=== PATIENT | female | born 1965 | race Caucasian/White ===

== ENCOUNTER 2023-06-16 08:30 | Outpatient (REF) | payer OTHER, SELFPAY | END 2023-06-16 08:31 | disposition home or self-care (01) | LOC: HO.SH 08:30 | PROVIDERS: Visit Provider Internal Medicine | DX: Z01.118 Encounter for examination of ears and hearing with other abnormal findings (principal); H93.293 Other abnormal auditory perceptions, bilateral | CPT/HCPCS: 92557; 92567 ==

== ENCOUNTER 2025-03-10 11:40 | Outpatient (AMB) | payer OTHER, SELFPAY ==
--- NOTE | 2025-03-10 11:39 | A.OFFPC_ITS ---
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 Required: No Accompanied by: Self / Same As Patient Allergies Penicillins (PCN) Allergy (Mild, Verified 03/10/25 13:10) Hives Sulfa (Sulfonamide Antibiotics) Allergy (Mild, Verified 03/10/25 13:10) hives Medication List - Last Reconciled 03/10/25 by Jovani Gaitan MD estradiol 0.01%(0.1mg/gram) 0.5 grams vaginal DAILY Tobacco use date assessed: 03/10/25 Dental Screening Dental Screen Date: 03/10/25 Did you have a dental visit in the last 12 months?: Yes Did you have a dental problem in the last 6 months where you did not have access to dental care?: No Was dental information given to patient?: Patient has dentist HPI HPI Comments History of Present Illness Details History of Present Illness - The patient is a 59 year old individua l presenting for evaluation of left leg swelling. - The patient reports that for the past week, there has been swelling in the left foot and leg, and has also noticed swelling in the hands, which prevents t he patient from wearing rings. - The patient notes sock imprints on bot h legs. - Associated symptoms include some sensi tivity in the calf and waking with numbness, which is different from the patient's usual morning stiffness from arthritis. - The patient gets a little winded climb ing three flights of stairs but can walk a mile without issue. - The patient denies any fall, injury, r ecent weight gain, shortness of breath, new medications, recent plane flights, or prolonged car rides prior to symptom onset. - The patient has a history of arthritis and takes Tylenol on occasion. 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 - Exercise: The patient averages about 7 ,500 steps a day and typically does a 10-minute walk workout in the morning, though not in the past week. - Functional Status: The patient reports being able to walk a mile without problems and climb three flights of stairs, though with some shortness of breath. Results PFSH Family History (Updated 03/10/25 @ 11:49 by JOSSELYN Dacosta) Father Diabetes Mother BP (high blood pressure) Arthritis Social History (Updated 03/10/25 @ 11:49 by JOSSELYN Dacosta) Housing: House Alcohol intake: current Alcohol intake frequency: a few times a week Patient Tobacco Use Status: Never used Tobacco service: No Current occupational status: employed Cognitive needs: No Hearing needs: No Vision needs: Yes (rx glasses) Questionnaire PHQ-9 Over the last 2 weeks, how often have you been bothered by any of the following problems? 1. Little interest or pleasure in doing things: not at all 2. Feeling down, depressed, or hopeless: not at all 3. Trouble falling or staying asleep, or sleeping too much: not at all 4. Feeling tired or having little energy: not at all 5. Poor appetite or overeating: not at all 6. Feeling bad about yourself - or that you are a failure or have let yourself or your family down: not at all 7. Trouble concentrating on things, such as reading the newspaper or watching television: not at all 8. Moving or speaking so slowly that other people could have noticed. Or the opposite - being so fidgety or restless that you have been moving around a lot more than usual: not at all 9. Thoughts that you would be better off or of hurting yourself in some way: not at all Total score: 0 Source: Developed by Drs. Faraz Salgado, Ilana Serrato, Orlando Ward and colleagues, with an educational dwight from [employer]. Thrive Questionnaire Date Thrive assessed: 03/10/25 I am a: Patient What is your living situation today?: I have a steady place to live Within the past 12 months, did the food you bought not last and you didn't have the money to get more?: Never true Within the past 12 months, did you worry whether your food would run out before you got money to buy more?: Never true Do you have trouble paying for medicines?: No Do you have trouble getting transportation to medical appointments?: No Do you have trouble paying your heating and electricity bill?: No Do you have trouble taking care of your child, family member or friend?: No Do you have trouble with day-to-day activities such as bathing, preparing meals, shopping, managing finances, etc.?: No Are you currently unemployed and looking for a job?: No Are you interested in more education?: No Please select the resources that you would like help with: None THRIVE Score: 0 AUDIT C Alcohol Use Questionnaire (AUDIT-C) 1. How often do you have a drink containing alcohol?: 2-3 times a week 2. How many drinks containing alcohol do you have on a typical day when you are drinking?: 1 or 2 3. How often do you have six or more drinks on one occasion?: Never Total Score: 3 ZINA-7 AMB Questionnaire ZINA-7 Date ZINA - 7 assessed: 03/10/25 Feeling nervous, anxious, or on edge: 0 = Not at all Not being able to stop or control worryin = Not at all Worrying too much about different things: 0 = Not at all Trouble relaxin = Not at all Being so restless that it is hard to sit still: 0 = Not at all Becoming easily annoyed or irritable: 0 = Not at all Feeling afraid as if something awful might happen: 0 = Not at all Total ZINA-7 score (0-4 normal; 5-9 mild; 10-14 moderate; 15-21 severe): 0 Source: Developed by Drs. Faraz Salgado, Ilana Serrato, Orlando Ward and colleagues, with an educational dwight from [employer]. Review of Systems Narrative Review of Systems - Cardiovascular: Denies shortness of breath. - Respiratory: Reports getting a little winded climbing three flights of stairs. - Musculoskeletal: Reports swelling in the left foot and leg for the past week, with some sensitivity in the calf. - Reports swelling in the hands. - Reports arthritis with usual morning stiffness. - Neurological: Reports waking with numbness. - General: Denies recent weight gain. Physical exam (Primary Care) Vital Signs: Last Vital Signs Temp 97.5 F 03/10/25 11:42 Pulse 94 03/10/25 11:42 Resp 14 03/10/25 11:42 BP 135/72 03/10/25 11:42 Pulse Ox 96 03/10/25 11:42 Oxygen Delivery Method Room Air 03/10/25 11:42 BMI result Body Mass Index 27.1 Tobacco/Smoking Status: Tobacco use Status Tobacco use date assessed 03/10/25 03/10/25 11:49 Patient Tobacco Use Status Never used Tobacco 03/10/25 11:49 PHQ-9: PHQ-9 Score PHQ-9: Total score 0 03/10/25 11:49 Thrive Assessment: Date of Thrive Assessment Date Thrive assessed 03/10/25 03/10/25 11:49 Narrative Physical Exam General: Cooperative and healthy appearing Nutritional Appearance: Well nourished Orientation/consciousness: Patient oriented x3 Limitations: No limitations Head: Normal to inspection General: Appearance normal, both eyes and all related structures Neck: Normal visual inspection Chest: Normal palpation of entire chest wall Respiratory: Normal respiratory effort Neurology: Patient oriented x3 Office Procedures Flu Questionnaire Does the patient have a severe egg allergy?: No Does the patient have severe life threatening allergies?: No Does the patient have a fever or illness today?: No Has the patient ever had Guillain-[place]apee Syndrome?: No Has the patient ever had any past reaction to a flu shot?: No Immunizations Fluarix [id number] (PF) 45 mcg (15 mcg x 3)/0.5 mL IM syringe Performing Provider: Jovani Gaitan MD [facility] Documented (not given) by: JOSSELYN Dacosta on 03/10/25 11:50 Reason Not Given: Patient Refused Coding Level of Care Code Complex visit Add On G2211 Diagnoses Arthralgia M25.50 Assessment & Plan Assessment & Plan (1) Arthralgia: Code(s): M25.50 - Pain in unspecified joint Plan Plan - An order will be placed for basic blood work, including a rheumatology workup and an Erythrocyte Sedimentation Rate (ESR), to evaluate for underlying inflammation. - The patient is advised to take estradiol for the next couple of days to reduce inflammation. - The patient is encouraged to resume exercise, as this may help reduce inflammation. - A follow-up visit is scheduled in two weeks to reassess the patient's condition. - If there is no improvement in symptoms at the follow-up visit, further evaluation will be required. Discussion Notes I discussed with the patient that while the swelling is a concern, the exam fi ndings are not particularly impressive. To investigate the cause, I ordered basic blood work including an ESR, which I described as a check engine light for inflammation. I recommended estradiol for a few days to reduce inflammation and advised resuming exercise. I explained that the current clinical picture does not strongly suggest a deep vein thrombosis (DVT). We will follow up in two weeks, and if the condition has not changed, further investigation will be necessary. Patient Instructions - Please go for blood work as ordered. - Take estradiol for the next couple of days to help reduce the inflammation. - Continue with your exercise routine. - Follow up in the office in two weeks. Orders: Orders Thyroid Stimulating Hormone Today M25.50 - Pain in unspecified joint Influenza [id number] Immunization Today Z23 - Encounter for immunization Erythrocyte Sedimentation Rate Today M25.50 - Pain in unspecified joint C Reactive Protein Today M25.50 - Pain in unspecified joint Basic Metabolic Panel Today M25.50 - Pain in unspecified joint Complete Blood Count no Diff Today M25.50 - Pain in unspecified joint Lyme IgG/IgM w/reflex to WB Today M25.50 - Pain in unspecified joint Liver Panel Today M25.50 - Pain in unspecified joint Lipid Panel Today M25.50 - Pain in unspecified joint
[2025-03-10 11:42] VITALS: BP 135/72; PULSE 94; RESP 14; TEMP 36.4; O2SAT 96; BMI 27.1
--- OUTSIDE RECORDS SUMMARY | 2025-03-10 15:23 | XMS_ITS | Clinical Summary ---
Author Organization [facility] Address [address] [place] [address] Care Team Providers Care Medical Doctor Md Name Role Phone Faraz Marr DO Primary Care Provider Allergies Active Allergy Reactions Criticality Noted Date Comments Azithromycin Rash Low 10/08/2015 Penicillin G 05/31/2017 Salicylic Acid-Sulfur Diarrhea,Rash Low 10/08/2015 Sulfa Antibiotics 05/31/2017 Medications No known medications Active Problems Problem Noted Date Diagnosed Date Hallux rigidus of left foot 05/31/2017 Family History Medical History Relation Name Comments Arthritis Father Diabetes Father Arthritis Mother Hypertension Mother Relation Name Status Comments Father Mother Social History Tobacco Use Types Packs/Day Years Used Date Smoking Tobacco: Never Smokeless Tobacco: Never Alcohol Use Standard Drinks/Week Comments Yes 0 (1 standard drink = 0.6 oz pur e alcohol) Sex and Gender Information Value Date Recorded Sex Assigned at Not on file Gender Identity Not on file Sexual Orientation Not on file Last Filed Vital Signs Vital Sign Reading Time Taken Comments Blood Pressure - - Pulse - - Temperature - - Respiratory Rate - - Oxygen Saturation - - Inhaled Oxygen Concentration - - Weight 77.1 kg (170 lb) 05/31/2017 8:58 AM EST Height 172.7 cm (5' 8 ) 05/31/2017 8:58 AM EST Body Mass Index 25.85 05/31/2017 8:58 AM EST Plan of Treatment Health Maintenance Due Date Last Done Comments Hepatitis C Screening 1964 COVID-19 Vaccine (#1) 1964 Depression Screening 1976 Preventative Health Evaluation 1982 DTap / Tdap / Td (1 - Tdap) 1983 Cervical Cancer Screening (P ap Smear) 1985 Colon Cancer Screening (Colonoscopy) 2009 Breast Cancer Screening (Mammogram) 2014 Shingrix-Zoster Vaccine (1 of 2) 2014 Influenza Vaccine (#1) 2024 RSV Adult > 60+ Yrs or Pregn ant (1 - 1-dose 75+ series) 2039 Hepatitis B Vaccines Aged Out No long er eligible based on patient's age to complete this topic Pneumococcal Vaccine Aged Out No long er eligible based on patient's age to complete this topic RSV Ped < 20 months Aged Out No longe r eligible based on patient's age to complete this topic Care Teams Medical Doctor Md Relationship Specialty Start Date End Date Faraz Marr DO [address] [place] [address] [place] [phone] PCP - General Internal Medicine 05/31/17
--- OUTSIDE RECORDS SUMMARY | 2025-03-10 15:23 | XMS_ITS ---
Author Name [facility] Organization Unknown History of Medication Use Medication Directions Dispensed Refills Start Date End Date Stat us estradiol (ESTRACE) 0.01 % vaginal cream Insert 0.5 g into the vagina daily. 08/20/2024 active Yuvafem 10 MCG vaginal tablet INSERT 1 TABLET INTO THE VAGINA 2 TIMES A WEEK. 08/30/2023 active estradiol (VAGIFEM) 10 MCG vaginal tablet Insert 1 tablet (10 mcg total) into the vagina 2 (two) times a week. 08/29/2022 08/30/2023 active ciprofloxacin (CIPRO) 500 MG tablet TAKE 1 TABLET BY MOUTH EVERY 12 HOURS FOR 7 DAYS 05/26/2022 08/20/2024 active No known medications No known medications active Allergies Allergen Reaction Severity Comment Documented Date Source Statu s SULFA ANTIBIOTICS OTHER (SEE COMMENTS) [facility] PENICILLINS OTHER (SEE COMMENTS) 05/31/2017 [facility] active AZITHROMYCIN RASH/DERMATITIS Mild 10/08/2015 [facility] active SALICYLIC ACID-SULFUR RASH/DERMATITIS 10/08/2015 [facility] active AMOXICILLIN-POT CLAVULANATE OTHER (SEE COMMENTS) [facility] Problems Problem Status Onset Date Problem Type Date of Resoluti on Source Hypertrophy of breast active 2015-10-08 ProblemAct [facility] Urinary frequency active [facility] pain active EncounterDiagnosisAct CCT Encounters Encounter Type Encounter Reason Primary Diagnosis Location Date Ambulatory New Patient New Patient [facility] 11/12/2024 [facility] 08/20/2024 Ambulatory Dense breasts, unspecified Dense breasts, unspecified [facility] 08/02/2024 Ambulatory Unspecified lump in the right breast, unspecified quadrant Unspecified lump in the right breast, unspecified quadrant [facility] 02/09/2024 Ambulatory Mammographic calcification found on diagnostic imaging of breast Mammographic calcification found on diagnostic imaging of breast [facility] 02/09/2024 Ambulatory [facility] 01/05/2024 Ambulatory Other low back pain Other low back pain [facility] 12/28/2023 Ambulatory Other low back pain Other low back pain [facility] 12/22/2023 Ambulatory [facility] 2023 Ambulatory Pelvic and perineal pain Pelvic and perineal pain [facility] 2023 Ambulatory Postmenopausal atrophic vaginitis Postmenopausal atrophic vaginitis [facility] 05/12/2023 Ambulatory Encounter for gynecological examination (general) (routine) without abnormal findings [facility] 08/29/2022 Ambulatory Encounter for ot her preprocedural examination [facility] 06/20/2022 Ambulatory Hypertrophy of breast [facility] 06/10/2022 Ambulatory Hypertrophy of [facility] 05/03/2022 Ambulatory [facility] 04/20/2022 Ambulatory Hypertrophy of breast [facility] 04/14/2022 Ambulatory [facility] 04/05/2022 [facility]ulatory [facility] 03[facility] 03[facility]11/2022 Ambulatory Hypertrophy of [facility] 02/28/2022 [place] [facility] 02/21/2022 Ambulatory [place] [facility] 02/14/2022 Ambulatory [place] [facility] 02/09/2022 Ambulatory Hypert[facility] 02/02/2022 Ambulatory Hypertrophy of [facility] 01/24/2022 Ambulatory Hypertrophy of [facility] 01/14/2022 Care Team Organization Name Specialty Phone Email Start Date End Da te [facility] 08/03/2024 025 [facility] 03/11/2022 025 [place] 01/14/2022 022
--- OUTSIDE RECORDS SUMMARY | 2025-03-10 15:23 | XMS_ITS | Encounter Summary ---
Author Organization [facility] Address [address] [place] [id number] Care Team Providers Care Medical Claims Analyst Name Role Phone Faraz Marr DO Primary Care Provider [phone] Arnulfo Solano MD Unavailable [phone] Encounter Details Date Type Department Care Team (Late st Contact Info) Description 01/05/2018 Scanned Document [facility] Plastic & Reconstructive Surgery [address] [place] [address] Ezra Noyola MD [address] [place] [address] Social History Tobacco Use Types Packs/Day Years Used Date Smoking Tobacco: Never Alcohol Use Standard Drinks/Week Comments Yes 4 (1 standard drink = 0.6 oz pur e alcohol) Comments Unknown Sex and Gender Information Value Date Recorded Sex Assigned at Female 11/11/2024 4:21 PM EDT Legal Sex Female 11:38 AM EDT Gender Identity Not on file Sexual Orientation Not on file documented as of this encounter Plan of Treatment Not on file documented as of this encounter Visit Diagnoses Not on filedocumented in this encounter Care Teams Medical Claims Analyst Relationship Specialty Start Date End Date Faraz Marr DO [address] [place] [address] [address] [place] [address] PCP - General Internal Medicine 11/01/21 Arnulfo Solano MD [address] [place] [id number] Obstetrics and Gynecology 08/29/22 documented as of this encounter
--- OUTSIDE RECORDS SUMMARY | 2025-03-10 15:23 | XMS_ITS | Clinical Summary ---
Author Organization [facility] Address [address] [facility] [place] [address] Phone Care Team Providers Care Litigation Specialist Name Role Phone Faraz Marr DO Primary Care Provider [phone] Allergies Active Allergy Reactions Criticality Noted Date Comments Amoxicillin 02/13/2024 Azithromycin Diarrhea,Nausea And Vomiting,Rash Low 10/08/2015 Penicillins Other 05/31/2017 Sulfa (Sulfonamide Antibiotics) Other 01/14/2022 Sulfadiazine 02/13/2024 Medications estradioL (Yuvafem) 10 mcg tablet vaginal tablet Insert 1 tablet (10 mcg total) into the vagina 2 (two) times a week. Active Active Problems Problem Noted Date Diagnosed Date Palpitations 02/13/2024 Assessment & Plan (02/13/2024 9:44 AM EST): See above. The patient has sinus rhythm and a tendency toward tachycardia. I suspect that she has sinus tachycardia during daytime hours. I have reviewed the different mechanisms associated with rapid heart rates and indicated that electrocardiographic diagnoses during rapid palpitations may be helpful if she has ongoing symptoms despite improved hydration and reduction of alcohol intake. 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 For the past year or so she has noted intermittent episodes during which her heart appears to be racing. These have generally occurred unpredictably and without clear-cut association with emotional stress. They dissipate after a few minutes and have responded favorably to relaxation techniques. There is no associated chest pain, breathlessness or presyncope. The patient has been able to measure her heart rate with her Apple Watch but it is an older version which does not permit rhythm tracings. The patient does not have any evidence of structural heart disease. She specifically does not appear to have a murmur to suggest mitral valve prolapse. Her electrocardiogram is likewise normal. I suspect that the patient tends to run a bit faster than average in terms of her heart rate but this does not appear pathologic. I suspect that she has increased adrenergic stimulation of the heart which may be due to relative dehydration and possibly aggravated by ingestion of caffeine and alcohol. I suggested that the patient work more aggressively on hydration and that she cut back on her alcohol intake. We did review relaxation techniques when her heartbeat is running fast in association with palpitation. I demonstrated to the patient how to take her pulse and indicated that if she has paroxysms where her heartbeat suddenly exceeds 150 beats a minute and then suddenly stops that rhythm determination would be helpful. Toward this end she could utilize a Liztic bora or potentially upgrade her Apple Watch. I do not feel that further cardiac testing such as echocardiography and Holter monitoring is likely to be useful at this time. However I did indicate that I would be happy to hear from her in the future if she has ongoing concerns regarding her heart rhythm. Orders: ECG 12 lead Pulse oximetry, spot Immunizations Immunization Administration Dates Next Due Moderna SARS-CoV-2 COVID-19, mRNA, LNP-S, preservative free 02/11/2022 Surgical History Surgery Date Site/Laterality Comments BREAST LUMPECTOMY BENIGN Medical History Medical History Date Comments GERD (gastroesophageal reflux disease) Bunion of left foot Low back pain Social History Tobacco Use Types Packs/Day Years Used Date Smoking Tobacco: Never Smokeless Tobacco: Never Tobacco Cessation:Counseling Given: Not Answered Alcohol Use Standard Drinks/Week Comments Yes 10 (1 standard drink = 0.6 oz pu re alcohol) Comments Unknown Sex and Gender Information Value Date Recorded Sex Assigned at Not on file Legal Sex Female 2:01 PM EST Gender Identity Not on file Sexual Orientation Not on file Obstetrics History Last Filed Vital Signs Vital Sign Reading Time Taken Comments Blood Pressure 128/82 02/13/2024 8:29 AM EST Pulse 90 02/13/2024 8:29 AM EST Temperature - - Respiratory Rate - - Oxygen Saturation 98% 02/13/2024 8:29 AM EST Inhaled Oxygen Concentration - - Weight 85.4 kg (188 lb 4.8 oz) 02/13/2024 8:29 A M EST Height 172.7 cm (5' 8 ) 02/13/2024 8:29 AM EST Body Mass Index 28.63 02/13/2024 8:29 AM EST Plan of Treatment Health Maintenance Due Date Last Done Comments Colorectal Cancer Screening: Colonoscopy 1964 DTaP,Tdap,and Td Vaccines (1 - Tdap) 1983 Cervical Cancer Screening: P ap Smear 1985 Pneumococcal Vaccine: 50+ Ye ars (1 of 1 - PCV) 2014 Zoster Vaccines (1 of 2) 2014 HIV Screening 01/06/2024 Hepatitis C Screening 01/06/2024 Social Influencers of Health Screening 01/06/2024 Depression Screening 04/10/2024 COVID-19 Vaccine (2 - 2024-2 6 season) 2024 02/11/2022 Influenza Vaccine (#1) 2024 Breast Cancer Screening 02/08/2026 02/09/2024 RSV Immunization Adult Patie nts (1 - 1-dose 75+ series) 2039 HIB Vaccines Aged Out No longer eligi ble based on patient's age to complete this topic HPV Vaccines Aged Out No longer eligi ble based on patient's age to complete this topic Hepatitis A Vaccines Aged Out No long er eligible based on patient's age to complete this topic Hepatitis B Vaccines Aged Out No long er eligible based on patient's age to complete this topic IPV Vaccines Aged Out No longer eligi ble based on patient's age to complete this topic MMR Vaccines Aged Out No longer eligi ble based on patient's age to complete this topic Meningococcal ACWY Vaccine Aged Out N o longer eligible based on patient's age to complete this topic Meningococcal B Vaccine Aged Out No l onger eligible based on patient's age to complete this topic RSV Immunization Patients Un drew 20 months Aged Out No longer eligible b ased on patient's age to complete this topic Varicella Vaccines Aged Out No longer eligible based on patient's age to complete this topic Insurance [employer] Care Teams Litigation Specialist Relationship Specialty Start Date End Date Faraz Marr DO [address] [place] [phone] PCP - General Internal Medicine 05/31/17
--- OUTSIDE RECORDS SUMMARY | 2025-03-10 15:23 | XMS_ITS | Clinical Summary ---
Author Organization [facility] Address [address] [place] [address] Care Team Providers Care Sld Educational Aide Name Role Phone TejinderLewis linares Akosua DIXON Primary Care Provider + [phone] Samuel Romero MD Unavailable [phone] Allergies Active Allergy Reactions Criticality Noted Date Comments Amoxicillin-Pot Clavulanate Other (See Comments) 01/14/2022 Azithromycin Rash/Dermatitis,Diar maksim, GI Intolerance/Nausea/Vomiti ng Low 10/08/2015 Penicillins Other (See Comments) 05/31/2017 Salicylic Acid-Sulfur Diarrhea,Rash/Dermatitis Low 10/08/2015 Sulfa Antibiotics Other (See Comments) 01/15/20 Salicylic Acid-Sulfur Diarrhea,Rash/Dermatitis Low 10/08/2015 Medications estradiol (ESTRACE) 0.01 % vaginal creamIndications :Vaginal atrophy Insert 0.5 g into the vagina daily. 42.5 g 3 08/20/2024 Active Active Problems Problem Noted Date Diagnosed Date Hypertrophy of breast 10/08/2015 Family History Medical History Relation Name Comments Diabetes Father Breast cancer Maternal Grandmother Hypertension Mother Cancer Paternal Grandfather Relation Name Status Comments Father Maternal Grandmother Mother Paternal Grandfather Social History Tobacco Use Types Packs/Day Years Used Date Smoking Tobacco: Never Smokeless Tobacco: Never Tobacco Cessation:Counseling Given: Not Answered Alcohol Use Standard Drinks/Week Comments Not Currently 0 (1 standard drink = 0.6 oz pur e alcohol) stopped 1 month and half ago AUDIT-C Answer Date Recorded Q1: How often do you have a drink containing alcohol? Never 06/02/2022 Q2: How many drinks containi ng alcohol do you have on a typical day when you are drinking? Patient does not drink 3 Q3: How often do you have si x or more drinks on one occasion? Never 06/02/2022 Comments No Sex and Gender Information Value Date Recorded Sex Assigned at Female 11/11/2024 4:21 PM EDT Legal Sex Female 11:38 AM EDT Gender Identity Not on file Sexual Orientation Not on file Last Filed Vital Signs Vital Sign Reading Time Taken Comments Blood Pressure 122/68 11/12/2024 8:46 AM EDT Pulse 99 06/20/2022 1:26 PM EDT Temperature 36.7 C (98.1 F) 06/20/2022 1:26 PM EDT Respiratory Rate 16 06/20/2022 1:26 PM EDT Oxygen Saturation 96% 06/20/2022 1:26 PM EDT Inhaled Oxygen Concentration - - Weight 80 kg (176 lb 6.4 oz) 08/20/2024 2:50 PM EDT Height 171.5 cm (5' 7.5 ) 08/20/2024 2:50 PM EDT Body Mass Index 27.22 08/20/2024 2:50 PM EDT Plan of Treatment Health Maintenance Due Date Last Done Comments Hepatitis C Virus Screening 1964 HIV Screening 1977 DTaP/Tdap/Td Vaccines (1 - Tdap) 1983 Colonoscopy 2009 Pneumococcal Vaccines 50+ (1 of 1 - PCV) 2014 Zoster (Shingles) Vaccine (1 of 2) 2014 Influenza Vaccine 11/08/2024 COVID-19 Vaccine (2 - season) 2024 02/11/2022 Mammogram 12/24/2025 12/25/2023, 05/11, 05/19/2022, Additional history exists Pap Smear (Ages 21-65) 08/21/2027 08/20/2024 RSV Vaccine 50 years and older and Patients (1 - 1-dose 75+ series) 2039 Hepatitis B Vaccines Aged Out No long er eligible based on patient's age to complete this topic Procedures Procedure Name Priority Date/Time Associated Diagnosis Comments THINPREP PAP(PROPOSAL WRITER) HPV SCR RFX HPV 16,18/45 Routine 08/20/2024 3:19 PM EDT Encounter for gynecological examination without abnormal finding MG SCREENING DIGITAL BREAST YASMANY- BILATERAL Routine 12/25/2023 4:27 PM EDT from Last 3 Months or Most Recently Relevant to Health Maintenance Results * (ABNORMAL) ThinPrep Pap(Insurance Sales Assistant) HPV Scr Rfx HPV 16,18/45 (08/20/2024 3:19 PM EDT) 08/20/2024 3:19 PM EDT Narrative [facility] - 08/27/2024 2:46 PM EDT To view the final report click the scan hyperlink below. us Samuel Romero MD LAB AMB PATH/CYTO ORDERABLES Final Result [facility] [address] [place] [address], [place] * MG SCREENING DIGITAL BREAST YASMANY- BILATERAL (12/25/2023 4:27 PM EDT) Anatomical Region Laterality Modality Other 12/25/2023 4:00 PM EDT 12/25/2023 4:00 PM EDT Impressions 01/16/2024 2:49 PM EDT Right 9:00 oval mass with associated calcifications is indeterminate. Additional imaging with spot magnification views and targeted right ultrasound is recommended. OVERALL ASSESSMENT: BI-RADS 0: Incomplete: Need Additional Imaging Evaluation. RECOMMENDATION: Right diagnostic mammography and ultrasound. The patient will receive a lay summary of the results of this breast imaging exam. Lay summaries for mammography examinations will also identify the patients personal breast tissue composition as required by state law. Electronically signed by: Nellie Betancur MD 01/16/2024 02:49 PM EDT Thank you for referring your patient to us, Nellie Betancur MD [phone] (Electronically Signed - 01/16/2024 14:49) Copy: SAMUEL ROMERO MD [facility] [employer] [address] [phone] Narrative 01/16/2024 2:49 PM EDT EXAMINATION: MM SCREENING WITH TOMOSYNTHESIS, BILATERAL CLINICAL INFORMATION: Routine annual screening mammography. History of right benign biopsy in 2022 and left benign biopsy in 2006. Family history of breast cancer in patients sister at age 67 and maternal grandmother at age 56. COMPARISON: Prior mammograms dating back to 12/13/2018. TECHNIQUE: Examination was performed using full breast technique. Standard CC and MLO views of the bilateral breasts were obtained. Tomosynthesis views of the bilateral breasts were obtained at 1 mm increments. Computer-aided detection was utilized by the radiologist in the interpretation of this exam. FINDINGS: The breasts are heterogeneously dense, which may obscure small masses. (ACR BI- RADS breast composition Category c)*. In the right breast at 9:00, middle depth, there is a 0.4 cm oval mass with associated calcifications. There are stable biopsy clips in both breasts. No significant masses, calcifications, or other findings are seen in the left breast. Procedure Note Nellie Betancur MD - 01/16/2024 EXAMINATION: MM SCREENING WITH TOMOSYNTHESIS, BILATERAL CLINICAL INFORMATION: Routine annual screening mammography. History of right benign biopsy [id number] and left benign biopsy in 2006. Family history of breast cancer inpatients sister at age 67 and maternal grandmother at age 56. COMPARISON: Prior mammograms dating back to 12/13/2018. TECHNIQUE: Examination was performed using full breast technique. Standard CC and MLOviews of the bilateral breasts were obtained. Tomosynthesis views of thebilateral breasts were obtained at 1 mm increments. Computer-aideddetection was utilized by the radiologist in the interpretation of this exam. FINDINGS: The breasts are heterogeneously dense, which may obscure small masses.(ACR BI- RADS breast composition Category c)*. In the right breast at 9:00, middle depth, there is a 0.4 cm oval masswith associated calcifications. There are stable biopsy clips in both breasts. No significant masses, calcifications, or other findings are seen in theleft breast. IMPRESSION: Right 9:00 oval mass with associated calcifications is indeterminate.Additional imaging with spot magnification views and targeted rightultrasound is recommended. OVERALL ASSESSMENT: BI-RADS 0: Incomplete: Need Additional Imaging Evaluation. RECOMMENDATION: Right diagnostic mammography and ultrasound. The patient will receive a lay summary of the results of this breastimaging exam. Lay summaries for mammography examinations will alsoidentify the patients personal breast tissue composition as required [facility] law. Electronically signed by: Nellie Betancur MD 01/16/2024 02:49 PM EDT RPWorkstation: [id number] Thank you for referring your patient to us, Nellie Betancur MD [phone] (Electronically Signed - 01/16/2024 14:49) Copy: SAMUEL ROMERO MD [facility] [employer] [address] [id number] [place] [address] [phone] us Generic Provider IMG LEGACY PROCEDURES Final Res ult from Last 3 Months or Most Recently Relevant to Health Maintenance [place] [address] [facility] [place] [address] [facility] Care Teams Sld Educational Aide Relationship Specialty Start Date End Date Lewis Marr DO [address] [place] [id number] PCP - General Internal Medicine 11/01/21 Samuel Romero MD [address] [place] [address] Obstetrics and Gynecology 08/29/22
--- OUTSIDE RECORDS SUMMARY | 2025-03-10 15:23 | XMS_ITS | Data Portability ---
Author Organization [place] - [facility], [facility], [id number] Address [address] [place] [address] Assessment No assessment recorded. Plan of Treatment Reminders Order Date Submit Date Provider Last Modified By Organization Details Last Modified Time Details Appointments None recorded. Lab rapid strep group A, throat 2024 025 [email or web address] [id number], [address] [facility] [address], [place], [address], 16:04:13 Referral None recorded. Procedures None recorded. Surgeries None recorded. Imaging None recorded. Medication Orders cyclobenzap rine 10 mg tablet 2024 025 [id number], [address] , [place], [place], [phone], 16:16:59 Patient TargetsNo targets recorded. Patient Instructions Encounter Date Encounter Id Patient Instructions Last Modified By Organization Details Last Modified Time 05/20/[id number] neck pain: care instructions [email or web address] Not available 05/20/2024 16:16:49 Your symptoms ar e coming from musculoskeletal tightness in the neck likely from your recent long car trip from [place]. There is no evidence of illness. I recommend treatment cyclobenzaprine you can take 10 mg every 8 hours as needed. This can cause sedation so I would not recommend driving after taking this. If you feel he can need to take this during the day, taking 1/2 pill can be helpful without causing too much sedation. You can use heat to the area. Regular stretching can be done as I showed you and you can also use massage to the area. Ibuprofen can be helpful as well. [email or web address] Not available 05/20/2024 16:17:30 11/29/2024 [id number] You may keep ici ng the area as needed. May take Tylenol ibuprofen if the pain worsens. Monitor for signs of infection that we discussed during your visit today. Urgent Care does not have the resources to rule out or treat limb or life-threatening conditions. YOU SHOULD PRESENT TO THE EMERGENCY DEPARTMENT FOR ANY LIMB OR LIFE THREATENING INJURIES/SYMPTOMS - CALL 911 IF NECESSARY FOR TRANSPORTATION. [place] or [facility] ED for pediatric patients or eye concerns is recommended. PRIMARY CARE: I recommended that every patient be established with a Primary Care Provider(PCP). If you do NOT currently have a PCP, you can visit [employer] to find one accepting new patients and even schedule online! [email or web address] Not available 11/29/2024 16:04:22 Reason for Referral None Reported. Results Created Date Observation Date Name Description Value Unit Range Abnormal Flag Note LastModifiedBy Organization Detail LastModifiedTime 05/20/19 25 05/20/2024 rapid strep group A, throa t Rapid Strep A negati ve Not Available [id number] [facility] [address], [address], 05/20/2024 15:50:55 05/20/19 25 05/20/2024 rapid strep group A, throa t Lot: # [id number] Not Available [id number] [facility] [address] [address], [place], [address], 05/20/2024 15:50:55 05/20/19 25 05/20/2024 rapid strep group A, throa t Expiration Date: 2025 Not Available [id number] [facility] [address] [facility] [address], [place], [address], 05/20/2024 15:50:55 Result Notes None recorded. Problems No Known Problems Medical Equipment None Reported. Allergies Allergen ID Allergen Name Allergen Category Reaction Reaction Severity Criticality Documentation Date Start Date Code Code System Note Provider Name and Address Organization Details Recorded Time [id number] Substance with sulfonami de structure and antibacte rial mechanism of action (substanc e) medicatio n Not available Not available Not available 05/20/2024 [id number] SNOMED Neva Kaiser LPN [facility], [facility] 15:48:34 [id number] Product containin g penicilli n (product) medicatio n Not available Not available Not available 05/20/2024 92866 8001 SNOMED Neva Kaiser LPN [facility], [facility] 15:48:41 [id number] amoxicill in medicatio n Not available Not available Not available 05/20/2024 723 [facility] 15:48:48 Medications Name Sig Start Date Stop Date Status Note LastModified by Organization Details LastModified Time cyclobenzaprine 10 mg tablet Take 1 tablet 3 times a day by oral route as needed, for neck pain. 2024 active Not Available Not Available Not Avai lable estradiol active Not Available Not Fadumo ilable Not Available Vitals Date Recorded Heart rate Respiratory rate Body temperature Oxygen saturation Systolic And Diastolic Provider Name and Address Organization Details Last Updated DateTime 5 105 /min 16 /min 97.7 [degF] 95 % 133/79 mm[Hg] Neva Kaiser LPN [facility], [facility] 5 15:48:15 Date Recorded Body height Body mass index (BMI) Body weight Body temperature Heart rate Respiratory rate Oxygen saturation Systolic And Diastolic Provider Name and Address Organization Details Last Updated DateTime 5 172.72 cm 26.2 kg/m2 10282.8 9 g 98.2 [degF] 84 /min 16 /min 98 % 102/69 mm[Hg] Josseline Martin [facility], [facility] 5 15:25:54 Social History Question Answer Notes LastModified by Organizat ion Details LastModified Time Tobacco Smoking Status Never Smoker Josselineayan smith [place] - [facility], [facility] 11/29/2024 15:28:13 What Is Your Level Of Caffeine Consumption? None Information not available 11/29/2024 What Was The Date Of Your Most Recent Tobacco Screening? 11/29/2024 Information not available 11/29/2024 Has Tobacco Cessation Counseling Been Provided? No Information not available 11/29/2024 Sex: Unknown Functional Status Question Answer Note LastModified by Organizat ion Details LastModified Time How many times per week do you consume alcohol? Less than 1 time per week Information not available 11/29/2024 Do you use any illicit or recreational drugs? No Information not available 11/29/2024 Do you or have you ever used any other forms of tobacco or nicotine? No Information not available 11/29/2024 What is your level of alcohol consumption? Occasional Information not available 11/29/2024 Mental Status None recorded. Family History Nothing Reported. Medical History No medical history recorded. Gynecological HistoryNo gynecological history recorded. Obstetrics History GPAL:G 0 P 0 0 0 0 Past Encounters Encounter ID Performer Location Encounter Start Date Encounter Closed Date Diagnosis/Indication Diagnosis SNOMED-CT Code Diagnosis ICD10 Code Diagnosis IMO Codes Diagnosis Note [id number] Steven Pruett MD [id number] [facility] [address] [place] [address] 05/20/2024 15:33:00 05/20/2024 16:23:21 Pain in throat 232873062 R07.0 The strep test is normal and I think her swallowing issues are related to her musculoske letal neck pain. Neck pain 18005555 M54.2 Amy has some muscle pain on both sides of the back of her neck and I think this is all related to the long car drive from [facility] as they drove for 5 days with a [employer]. I did give her cyclobenza nancy 10 mg to take every 8 hours as needed. I showed her stretching exercises to help. She can use ibuprofen as needed and she can also use heat and massage to the neck as well. [id number] EL WHEELER NP [id number] [place] [address] 11/29/2024 15:05:11 11/29/2024 16:12:59 Insect bite - wound 779357374 W57.XXXA [id number] Health Concerns Section Related Observation LastModified by Organization Detai ls LastModified Time None Recorded Concern Status LastModified by Organization Details LastModified Time None Recorded Advance Directives Directive None Recorded Payers Insurance Date Sequence Insurance Name Policy Number Policy Flores Covered Member ID Flores Member ID Guarantor Name 11/29/2024 1 NAVIN [id number] Amy Contreras [id number] Amy Contreras Notes Date Note Type Note Provider Name and Address Organization Details Recorded Time 05/20/2024 text/html ROS as noted in the HPI Amy presents today with some neck pain and the back of her neck on both sides. She feels a little bit of tingling over the arms as well. She has not any runny nose or congestion denies any sore throat but she does note a little bit of difficulty with swallowing. She has not had any shortness of breath or abdominal pain denies any vomiting, diarrhea, or constipation. She just drove from [place] with a [employer] over 5 days. Steven Pruett MD [address], [address], [facility], [facility] 05/20/2024 20:06:40 11/29/2024 text/html ROS as noted in the HPI 59-year-old female presents with a suspected spider bite to her left hand that occurred this morning. She states it was originally very swollen and red, but has now improved significantly. She states she was placing ice on it and the swelling has resolved. She denies any numbness or tingling, weakness, pain to the area. EL WHEELER NP [address] [facility] [address], [place], [address], [facility], [facility] 11/29/2024 16:13:19 OBGyn Episode No OBEpisode recorded.
--- OUTSIDE RECORDS SUMMARY | 2025-03-10 15:23 | XMS_ITS | Clinical Summary ---
Author Organization [facility] Address [address] [place] [address] Phone Care Team Providers Care Baker Biscuit Name Role Phone Jovani Gaitan MD Primary Care Provid er Allergies Active Allergy Reactions Criticality Noted Date Comments Amoxicillin-Pot Clavulanate Other (See Comments),Rash Low 01/14/2022 Azithromycin Diarrhea,Nausea and/ or Vomiting,Nausea And Vomiting,Rash Low 10/08/2015 Penicillins Hives,Nausea and/or Vomiting,Other (See Comments) 05/31/2017 Salicylic Acid-Sulfur Diarrhea,Rash Low 10/08/2015 Sulfa (Sulfonamide Antibiotics) Diarrhea,Hives,Nausea and/or Vomiting,Other (See Comments),Rash Low 01/14/2022 Medications estradioL (VAGIFEM) [address] 10 mcg vaginally. Active Encounters Date Type Department Care Team Description 02/12/2025 1:00 PM EST Office Visit [facility] Plastic Surgery [address] [address] Carlos Avelar PA-C Macromastia (Primary Dx) from Last 3 Months Social History Tobacco Use Types Packs/Day Years Used Date Smoking Tobacco: Never Smokeless Tobacco: Never Tobacco Cessation:Counseling Given: Not Answered Education Answer Date Recorded Are you interested in more education? Not on kori e 01/25/2024 Are you concerned about learning? Not on file 01/25/2024 No 01/25/2024 No 01/25/2024 Digital Access Answer Date Recorded No 01/25/2024 No 01/25/2024 Reliable internet access at home? Not on file 01/25/2024 Device with a working camera? Not on file Comments Unknown Sex and Gender Information Value Date Recorded Sex Assigned at Female 01/09/2025 11:07 AM EDT Legal Sex Female 10:33 PM EDT Gender Identity Female 01/09/2025 11:07 AM EDT Sexual Orientation Straight 01/09/2025 11 :07 AM EDT Last Filed Vital Signs Vital Sign Reading Time Taken Comments Blood Pressure 125/80 02/12/2025 12:57 PM EST Pulse 85 02/12/2025 12:57 PM EST Temperature - - Respiratory Rate - - Oxygen Saturation 97% 02/12/2025 12:57 PM EST Inhaled Oxygen Concentration - - Weight 80.9 kg (178 lb 6.4 oz) 02/12/2025 12:57 PM EST Height 170.5 cm (5' 7.13 ) 02/12/2025 12:[address] Body Mass Index 27.84 02/12/2025 12:57 PM EST Plan of Treatment Upcoming Encounters Date Type Department Care Team (Late st Contact Info) Description 03/31/2025 1:00 PM EST Office Visit [facility] Plastic Surgery at [address] [place] [address] Ira Norris MD [address] [place] [id number] [email or web address] Health Maintenance Due Date Last Done Comments Adult Td,Tdap Booster 1964 LIPID PANEL 1964 DEPRESSION SCREENING 1976 HEPATITIS C SCREENING 1982 HIV ONE-TIME SCREENING (18-65 YEARS) 1982 PAP SMEAR 1985 SCREENING FOR DIABETES 1999 COLOGUARD 2009 COLONOSCOPY 2009 COLORECTAL CANCER SCREENING 2009 FIT TEST 2009 FOBT 2009 SIGMOIDOSCOPY 2009 VIRTUAL COLONOSCOPY 2009 PNEUMOCOCCAL VACCINES (50+ years) (1 of 1 - PCV) 2014 ZOSTER VACCINES (1 of 2) 2014 INFLUENZA VACCINE (#1) 2024 COVID-19 VACCINE ( season) 2024 MAMMOGRAM 12/24/2025 12/25/2023, 12/09, 06/16/2022, Additional history exists RSV VACCINE (1 - 1-dose 75+ series) 2039 SMOKING STATUS SCREENING (Once After 26 Yrs) Completed 02/12/2025 HEPATITIS A VACCINES Aged Out No long er eligible based on patient's age to complete this topic HIB VACCINES Aged Out No longer eligi ble based on patient's age to complete this topic MENINGOCOCCAL VACCINES (ACWY) Aged Out No longer eligible based on patient's age to complete this topic MENINGOCOCCAL VACCINES (B) Aged Out N o longer eligible based on patient's age to complete this topic Medical Devices Not on file Procedures Procedure Name Priority Date/Time Associated Diagnosis Comments BI MAMMOGRAM OUTSIDE (NO INTERPRETATION) Routine 12/25/2023 12:00 AM EDT from Last 3 Months or Most Recently Relevant to Health Maintenance Results * Mammogram Outside (No Interpretation) (12/25/2023 12:00 AM EDT) Narrative Record, 02/01/2024 9:43 AM EDT This study is for PACS storage only and not for interpretation. Procedure Note Record, 02/01/2024 This study is for PACS storage only and not for interpretation. us Unknown Unknown MD MIROSLAVA OUTSIDE IMAGING W/OUT INT ERPRETATION Final Result from Last 3 Months or Most Recently Relevant to Health Maintenance Insurance [employer] PPO Member Subscriber Plan / Payer (Ef fective 2004-Present) Name:Amy Contreras Relation to Subscriber:Self Name:Amy Contreras Payer ID:[id number] ([facility]) Type:PPO Address: [address] [place] [id number] [employer] PPO Member Subscriber Plan / Payer (Ef fective 2004-Present) Name:Amy Contreras Relation to Subscriber:Self Name:Amy Contreras Payer ID:[id number] ([facility]) Type:PPO Address: [address] [place] [id number] [employer] PPO Member Subscriber Plan / Payer (Ef fective 2004-Present) Name:Amy Contreras Relation to Subscriber:Self Name:Amy Contreras Payer ID:[id number] ([facility]) Type:PPO Address: [address] [place] [id number] [employer] PPO CIGNA PPO [employer] PPO Care Teams Baker Biscuit Relationship Specialty Start Date End Date Jovani Gaitan MD [address] [place] [id number] PCP - General Internal Medicine 02/10/25 Additional Source Comments The information contained in this document represents components of the legal health record. It is not the complete legal health record.[facility]
== END 2025-03-10 12:10 | disposition home or self-care (01) ==
LOC: HO.HMCSH 11:40
PROVIDERS: PCP Internal Medicine; Visit Provider Internal Medicine
DX: Z23 Encounter for immunization (principal); M25.50 Pain in unspecified joint

== ENCOUNTER 2025-03-10 11:40 | Outpatient (REF) | payer OTHER, SELFPAY ==
[2025-03-10 13:49] LABS: Hematocrit 40.7 % (37.0-47.0); Hemoglobin 13.5 g/dl (12.0-16.0); Mean Corpuscular HGB Conc 33.2 g/dl (31.0-35.0); Mean Corpuscular Hemoglobin 30.2 pg (27.0-33.0); Mean Corpuscular Volume 91.1 fL (80.0-98.0); NRBC Abs Auto 0.000 X10*3/uL (0.0-0.012); NRBC Pct Auto 0.0 /100WBC (0.0-0.2); Platelet Count 352 X10*3/uL (160-400); Red Blood Count 4.47 X10*6/uL (4.20-5.50); White Blood Count 9.4 X10*3/uL (4.8-10.8)
[2025-03-10 14:33] LABS: Alanine Aminotransferase 28 U/L (0-31); Albumin Level 4.8 g/dL (3.5-5.0); Alkaline Phosphatase 93 U/L (39-117); Anion Gap 12 (12-20); Aspartate Amino Transferase 31 U/L (5-31); Blood Urea Nitrogen 12 mg/dL (9-16); Calcium 9.6 mg/dL (8.4-10.2); Carbon Dioxide 25 mmol/L (22-29); Chloride 107 mmol/L (96-108); Cholesterol 254 mg/dL (<200); Estimated Glomerular Filt Rate > 60; HDL Cholesterol 60 mg/dL (>40); Potassium 4.3 mmol/L (3.3-5.1); Sodium 140 mmol/L (135-145); Total Protein 8.2 g/dL (6.5-8.0); Triglycerides 154 mg/dL (<150)
[2025-03-10 14:36] LABS: Erythrocyte Sedimentation Rate 18 MM/HR (0-20)
[2025-03-10 14:40] LABS: Thyroid Stimulating Hormone 2.11 uIU/mL (0.32-4.0)
[2025-03-11 09:19] LABS: Lyme Abs Screen <0.90 index
== END 2025-03-10 11:41 | disposition home or self-care (01) ==
LOC: HO.LAB 11:40
PROVIDERS: PCP Internal Medicine; Visit Provider Internal Medicine
DX: M25.50 Pain in unspecified joint (principal); Z13.6 Encounter for screening for cardiovascular disorders; Z13.31 Encounter for screening for depression; Z13.39 Encounter for screening examination for other mental health and behavioral disorders
CPT/HCPCS: 36415; 80048; 80061; 80076; 84443; 85027; 85652; 86140; 86617; 86618; 90471; 96127

== ENCOUNTER 2025-03-25 11:06 | Outpatient (AMB) | payer OTHER, SELFPAY ==
--- NOTE | 2025-03-25 11:17 | A.OFFPC_ITS ---
Vital Signs 03/25/25 11:17 03/25/25 11:23 Height 5 ft 8.5 in 5 ft 8.5 in Weight 185 lb BMI 27.7 BP 111/69 Blood Pressure Location Rt brachial Pulse 86 Pulse Source Pulse Oximeter Temp 97.1 F Pulse Oximetry (%) 96 Intake Visit Reasons: 2 weeks follow up Intake Note: Had ingrown toenails removed yesterday in her right foot also had a stye in her right eye which isgoing away now. Net Software Engineer Required: No Accompanied by: Self / Same As Patient Allergies amoxicillin (From Augmentin) Allergy (Severe, Verified 03/25/25 11:43) Diarrhea clavulanic acid (From Augmentin) Allergy (Severe, Verified 03/25/25 11:43) Diarrhea Penicillins (PCN) Allergy (Mild, Verified 03/25/25 11:43) Hives Sulfa (Sulfonamide Antibiotics) Allergy (Mild, Verified 03/25/25 11:43) hives Medication List - Last Reconciled 03/25/25 by Jovani Gaitan MD doxycycline hyclate 50 mg PO BID estradiol 0.01%(0.1mg/gram) 0.5 grams vaginal DAILY Tobacco use date assessed: 03/10/25 Dental Screening Dental Screen Date: 03/25/25 Did you have a dental visit in the last 12 months?: Yes Did you have a dental problem in the last 6 months where you did not have access to dental care?: No Was dental information given to patient?: Patient has dentist HPI HPI Comments History of Present Illness Details History of Present Illness - The patient is a 59-year-old female pr esenting for a follow-up visit regarding left leg swelling and to review lab results. - She was seen on March 10 for left leg and foot swelling, with associated hand swelling preventing her from wearing her usual rings, and sock imprints on both legs. - She also reported sensitivity in the c armin and waking with numbness, which was different from her usual morning stiffness. - She reported feeling winded when climb ing stairs but is able to walk a mile. - She denied any recent falls, injuries, weight gain, shortness of breath, new medications, recent plane flights, or prolonged car rides. - The patient feels the swelling is stil l present but not as it used to be. - She has a consultation scheduled for a breast reduction due to the difficulty it causes with exercise. Social History - Exercise: The patient reports she can walk a mile. - She states it is hard to exercise with large breasts. - She is unable to go out with her dogs due to icy weather conditions but plans to get more exercise during an upcoming trip to [place]. - Family: The patient's son is in [employer] school at [employer] and works at the [employer]. - Travel: The patient is planning to [facility] to [place], [place] after [place], a trip that takes four and a half days. Results - General Labs: The comprehensive metabo lic panel was normal, including kidney and liver functions. - Hematology: No anemia noted. - Inflammatory Markers: Negative for art hritis and inflammatory conditions. - Endocrine: Thyroid function was normal . - Infectious Disease: Lyme test was nega tive. - Lipids: LDL cholesterol is elevated at 164 mg/dL. [facility] Surgical History History of colonoscopy (~07/23/24) Family History Father Diabetes Mother BP (high blood pressure) Arthritis Social History Housing: House Alcohol intake: current Alcohol intake frequency: a few times a week Patient Tobacco Use Status: Never used Tobacco service: No Current occupational status: employed Cognitive needs: No Hearing needs: No Vision needs: Yes (rx glasses) Questionnaire PHQ-9 Over the last 2 weeks, how often have you been bothered by any of the following problems? 1. Little interest or pleasure in doing things: not at all 2. Feeling down, depressed, or hopeless: not at all 3. Trouble falling or staying asleep, or sleeping too much: not at all 4. Feeling tired or having little energy: not at all 5. Poor appetite or overeating: not at all 6. Feeling bad about yourself - or that you are a failure or have let yourself or your family down: not at all 7. Trouble concentrating on things, such as reading the newspaper or watching television: not at all 8. Moving or speaking so slowly that other people could have noticed. Or the opposite - being so fidgety or restless that you have been moving around a lot more than usual: not at all 9. Thoughts that you would be better off or of hurting yourself in some way: not at all Total score: 0 Source: Developed by Drs. Faraz Salgado, Ilana Serrato, Orlando Ward and colleagues, with an educational dwight from [employer] Thrive Questionnaire Date Thrive assessed: 03/10/25 I am a: Patient What is your living situation today?: I have a steady place to live Within the past 12 months, did the food you bought not last and you didn't have the money to get more?: Never true Within the past 12 months, did you worry whether your food would run out before you got money to buy more?: Never true Do you have trouble paying for medicines?: No Do you have trouble getting transportation to medical appointments?: No Do you have trouble paying your heating and electricity bill?: No Do you have trouble taking care of your child, family member or friend?: No Do you have trouble with day-to-day activities such as bathing, preparing meals, shopping, managing finances, etc.?: No Are you currently unemployed and looking for a job?: No Are you interested in more education?: No Please select the resources that you would like help with: None THRIVE Score: 0 AUDIT C Alcohol Use Questionnaire (AUDIT-C) 1. How often do you have a drink containing alcohol?: 2-3 times a week 2. How many drinks containing alcohol do you have on a typical day when you are drinking?: 1 or 2 3. How often do you have six or more drinks on one occasion?: Never Total Score: 3 ZINA-7 AMB Questionnaire ZINA-7 Date ZINA - 7 assessed: 03/10/25 Feeling nervous, anxious, or on edge: 0 = Not at all Not being able to stop or control worryin = Not at all Worrying too much about different things: 0 = Not at all Trouble relaxin = Not at all Being so restless that it is hard to sit still: 0 = Not at all Becoming easily annoyed or irritable: 0 = Not at all Feeling afraid as if something awful might happen: 0 = Not at all Total ZINA-7 score (0-4 normal; 5-9 mild; 10-14 moderate; 15-21 severe): 0 Source: Developed by Drs. Faraz Salgado, Ilana Serrato, Orlando Ward and colleagues, with an educational dwight from [employer] Review of Systems Narrative Review of Systems - Cardiovascular: Reports dyspnea on exertion while climbing stairs and calf sensitivity. Denies shortness of breath at rest. - Musculoskeletal: Reports usual morning stiffness. Denies recent falls or injuries. - Neurological: Reports waking with numbness. - Extremities: Reports swelling in the left leg and foot, as well as swelling in her hands, resulting in difficulty wearing rings. She notes sock imprints on both legs. - General: Denies weight gain. Physical exam (Primary Care) Vital Signs: Last Vital Signs Temp 97.1 F 03/25/25 11:23 Pulse 86 03/25/25 11:23 BP 111/69 03/25/25 11:23 Pulse Ox 96 03/25/25 11:23 BMI result Body Mass Index 27.7 Tobacco/Smoking Status: Tobacco use Status Tobacco use date assessed 03/10/25 03/25/25 11:18 Patient Tobacco Use Status Never used Tobacco 03/25/25 11:18 PHQ-9: PHQ-9 Score PHQ-9: Total score 0 03/25/25 11:31 Thrive Assessment: Date of Thrive Assessment Date Thrive assessed 03/10/25 03/25/25 11:18 Narrative Physical Exam General: Appearance normal, both eyes and all related structures Nutritional Appearance: Well nourished Orientation/consciousness: Patient oriented x3 Limitations: No limitations Head: Normal to inspection Neck: Normal visual inspection Chest: Normal palpation of entire chest wall Respiratory: Normal respiratory effort, but patient reports getting winded climbing stairs Neurology: Patient oriented x3 Office Procedures Flu Questionnaire Does the patient have a severe egg allergy?: No Does the patient have severe life threatening allergies?: No Does the patient have a fever or illness today?: No Has the patient ever had Guillain-[place] Syndrome?: No Has the patient ever had any past reaction to a flu shot?: No Immunizations Fluarix [id number] (PF) 45 mcg (15 mcg x 3)/0.5 mL IM syringe Performing Provider: Jovani Gaitan MD [place] [facility] [place] [facility] Documented (not given) by: Karis Dominguez on 03/25/25 11:32 Reason Not Given: Patient Refused Coding Level of Care Code Est Pt Level 4 (54383) Add On Problem Visit Only Diagnoses Arthralgia M25.50 Assessment & Plan Assessment & Plan (1) Arthralgia: Code(s): M25.50 - Pain in unspecified joint Plan Plan - The patient was reassured that based on recent blood work, there is no active inflammatory condition, anemia, or issues with kidney, liver, or thyroid function causing her symptoms. - Her symptoms are likely due to poor circulation. - For hypercholesterolemia, with an LDL of 164 mg/dL, a statin was recommended. - The patient requested to first attempt management with diet and exercise. - Agreed to a trial of lifestyle modifications with a follow-up in six months. - The patient will proceed with her consultation for breast reduction surgery at [facility]. - Recommended lifestyle changes including exercise and diet modification to address both circulation and cholesterol. Discussion Notes I reviewed the results of the recent blood work with the patient. I explained that the tests for arthritis, inflammatory conditions, anemia, kidney function, liver function, and thyroid function were all normal, and her Lyme test was negative, suggesting no active disease process. I informed her that her symptoms were likely related to poor circulation. I discussed her elevated LDL cholesterol of 164 mg/dL, noting the target is around 100 mg/dL, and recommended starting a statin. The patient preferred to first attempt management with diet and exercise, and I agreed to this approach, with a plan to re-evaluate in six months. We also discussed her upcoming consultation for a breast reduction. Patient Instructions - Your recent lab results were mostly normal, showing no signs of arthritis, inflammation, anemia, or problems with your kidneys, liver, or thyroid. - The swelling you are experiencing is likely due to poor circulation. - Your LDL, or bad cholesterol, is high at 164. The goal is to have it around 100. - As you requested, you will try to lower it with diet and exercise first, before considering medication. - Increase your physical activity and focus on a healthy diet to help with both circulation and cholesterol. - Plan to have your cholesterol checked again in six months to see if the diet and exercise changes have been effective. - Continue with your scheduled consultation for a breast reduction. Orders: Orders Influenza [id number] Immunization Today Z23 - Encounter for immunization
[2025-03-25 11:23] VITALS: BP 111/69; PULSE 86; TEMP 36.2; O2SAT 96; BMI 27.7
--- OUTSIDE RECORDS SUMMARY | 2025-03-25 14:36 | XMS_ITS | Clinical Summary ---
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 For the [...] Toward this end she could utilize a Piqora bora or potentially upgrade her Apple Watch. [...] complete this topic Insurance [employer] Care Teams Operating Engineer Apprentice Relationship Specialty Start Date End Date Faraz Marr DO [address] [place] [address] [place] [id number] PCP - General Internal Medicine 05/31/17
--- OUTSIDE RECORDS SUMMARY | 2025-03-25 14:36 | XMS_ITS | Clinical Summary ---
Author Organization [email or web address] [facility] Prior to 09/07/[address] [place] [address] Care Team Providers Care Salon Stylist Name Role Phone Faraz Marr DO Primary [...] age to complete this topic Care Teams Salon Stylist Relationship Specialty Start Date End Date Faraz Marr DO [address] [place] [address] [place] [phone] PCP - General Internal Medicine 05/31/17
--- OUTSIDE RECORDS SUMMARY | 2025-03-25 14:38 | XMS_ITS | Clinical Summary ---
Author Organization [facility] Address [address] [place] [address] Phone Care Team Providers Care Director Of Property Management Name Role Phone Jovani Gaitan MD Primary [...] Description 02/12/2025 1:00 PM EST Office Visit [facility] Plastic Surgery [address] [address] Carlos Avelar PA-C Macromastia (Primary Dx) from [...] Description 03/31/2025 1:00 PM EST Office Visit [facility] Plastic Surgery at [address] [place] [address] Ira Norris MD [address] [place] [phone] [email or web address] Health Maintenance Due Date Last Done Comments [...] Relation to Subscriber:Self Name:Amy Contreras Payer ID:[id number] ([facility]) Type:PPO Address: [address] [place] [id number] [employer] PPO Member Subscriber Plan / Payer (Ef fective 2004-Present) Name:Amy Contreras Relation to Subscriber:Self Name:Amy Contreras Payer ID:[id number] ([facility]) Type:PPO Address: [address] [place] [id number] [employer] PPO Member Subscriber Plan / Payer (Ef fective 2004-Present) Name:Amy Contreras Relation to Subscriber:Self Name:Amy Contreras Payer ID:[id number] ([facility]) Type:PPO Address: [address] [place] [id number] [employer]IG[employer] PPO CIGNA PPO CIG[employer] PPO Care Teams Director Of Property Management Relationship Specialty Start Date End Date Jovani Gaitan MD [address] [place] [id number] PCP - General Internal Medicine 02/10/25 Additional Source Comments The information contained in this document represents components of the legal health record. It is not the complete legal health record.[facility]
--- OUTSIDE RECORDS SUMMARY | 2025-03-25 14:38 | XMS_ITS | Clinical Summary ---
Author Organization [facility] Address [address] [place] [address] Care Team Providers Care Ignition Expert Name Role Phone TejinderLewis linares Akosua DIXON Primary Care Provider [phone] Samuel Romero MD Unavailable [phone] Allergies Active Allergy Reactions Criticality Noted [...] Name Priority Date/Time Associated Diagnosis Comments THINPREP PAP(PUBLIC HEALTH SPECIALIST) HPV SCR RFX HPV 16,18/45 Routine 08/20/2024 3:19 PM EDT Encounter for gynecological examination without abnormal finding MG SCREENING DIGITAL BREAST YASMANY- BILATERAL Routine 12/25/2023 4:27 PM EDT from Last 3 Months or Most Recently Relevant to Health Maintenance Results * (ABNORMAL) ThinPrep Pap(Tufter) HPV Scr Rfx HPV 16,18/45 (08/20/2024 3:19 PM EDT) 08/20/2024 3:19 PM EDT Narrative [facility] - 08/27/2024 2:46 PM EDT To view the final report click the scan hyperlink below. us Samuel Romero MD LAB AMB PATH/CYTO ORDERABLES Final Result [facility] [address] [place] [address], [place] * MG SCREENING DIGITAL BREAST YASMANY- [...] your patient to us, Nellie Betancur MD [phone] (Electronically Signed - 01/16/2024 14:49) Copy: SAMUEL ROMERO MD [facility]- OB-ACQUISITIONS ASSISTANT [address] [phone] Narrative 01/16/2024 2:49 PM EDT EXAMINATION: MM [...] screening mammography. History of right benign biopsy [id number] and left benign biopsy in 2006. Family [...] patients personal breast tissue composition as [facility]. Electronically signed by: Nellie Betancur MD 01/16/2024 02:49 PM EDT RPWorkstation: [id number] Thank you for referring your patient to us, Nellie Betancur MD [phone] (Electronically Signed - 01/16/2024 14:49) Copy: SAMUEL ROMERO MD [facility]- OB-ACQUISITIONS ASSISTANT [address] [id number] [place] [address] [phone] us Generic Provider IMG LEGACY PROCEDURES Final Res ult from Last 3 Months or Most Recently Relevant to Health Maintenance [place] [phone] [facility] [place] [address] [employer] Care Teams Ignition Expert Relationship Specialty Start Date End Date Lewis Marr DO [address] [place] [id number] PCP - General Internal Medicine 11/01/21 Samuel Romero MD [address] [place] [address] Obstetrics and Gynecology 08/29/22
== END 2025-03-25 11:45 | disposition home or self-care (01) ==
LOC: HO.HMCSH 11:06
PROVIDERS: PCP Internal Medicine; Visit Provider Internal Medicine
DX: M25.50 Pain in unspecified joint (principal); Z23 Encounter for immunization

== ENCOUNTER → 2025-03-25 11:06 | Outpatient (BNVA) | payer OTHER, SELFPAY | PROVIDERS: PCP Internal Medicine; Visit Provider Internal Medicine | DX: Z28.21 Immunization not carried out because of patient refusal (principal); M25.50 Pain in unspecified joint | CPT/HCPCS: 90471; 96127 ==